=== PATIENT | female | born 1950 | race Caucasian/White ===

== ENCOUNTER 2017-11-17 07:33 | Day surgery (SDC) | payer BC ==
[2017-11-17] MEDS ORDERED: Lactated Ringers 1,000 ML IV SCH (08:30)
[2017-11-17] MEDS ORDERED: Midazolam 1 MG/ML 2 ML SDV ONE (09:06)
[2017-11-17] MEDS ORDERED: fentaNYL 100 MCG/2 ML SDV ONE (09:06)
[2017-11-17] MEDS ORDERED: Propofol 200 MG/20 ML SDV ONE (09:06)
--- NOTE | 2017-11-17 10:17 | OR ---
DATE OF PROCEDURE: 11/17/2017 PROCEDURE: Colonoscopy. FINDINGS: Diverticulosis. COMPLICATIONS: None. PALLET SORTER: None. ANESTHESIA: MAC. PREOPERATIVE DIAGNOSIS: Screening colonoscopy. POSTOPERATIVE DIAGNOSIS: Screening colonoscopy. RISKS: Risks, benefits, alternatives, and limitations including infection, bleeding, and perforation were explained to the patient and she wished to proceed. PROCEDURE IN DETAIL: The patient was placed in left lateral decubitus position. Digital rectal exam was performed which showed mild external hemorrhoids. The scope was introduced and advanced atraumatically to the ileocecal valve. The scope was brought back through the ascending, transverse, descending colon, and retroflexed. No evidence of old or new blood. The patient's diverticulosis would be described as mild-to- moderate, mostly concentrated in sigmoid colon, but extends up to the cecum. No abnormalities on retroflex. The patient tolerated the procedure well. Mikal Sierra MD /[id number]
== END 2017-11-17 11:05 | disposition home or self-care (01) ==
LOC: JP.SDS 07:33
PROVIDERS: ATTEND Surgery
DX: Z12.11 Encounter for screening for malignant neoplasm of colon (principal); K57.30 Diverticulosis of large intestine without perforation or abscess without bleeding; K64.4 Residual hemorrhoidal skin tags; I10 Essential (primary) hypertension; E78.5 Hyperlipidemia, unspecified; K21.9 Gastro-esophageal reflux disease without esophagitis; E03.9 Hypothyroidism, unspecified
CPT/HCPCS: 45378; J2250; J2704; J3010; J7120

== ENCOUNTER 2023-09-05 13:15 | Emergency (ER) | payer MEDICARE, BC ==
[2023-09-05] MEDS ORDERED: Sodium Chloride 0.9% 10 ML Syringe FLUSH PRN ×2 (13:56→14:03)
[2023-09-05 14:25] LABS: BASOPHILS ABSOLUTE AUTO 0.05 K/uL (0.00-0.10); BASOPHILS PERCENT AUTO 0.6 % (0.1-1.3); EOSINOPHILS ABSOLUTE AUTO 0.13 K/uL (0.00-0.40); EOSINOPHILS PERCENT AUTO 1.5 % (0.0-5.4); HEMATOCRIT 42.6 % (34.3-46.0); HEMOGLOBIN 14.6 g/dL (11.2-15.5); IMMATURE GRAN ABSOLUTE AUTO 0.03 K/uL (0.00-0.23); IMMATURE GRAN PERCENT AUTO 0.3 % (0.0-0.7); LYMPHOCYTES ABSOLUTE AUTO 2.23 K/uL (0.8-3.3); LYMPHOCYTES PERCENT AUTO 25.4 % (11.4-47.7); MEAN CORPUSCULAR HEMOGLOBIN 30.7 pg (31.6-35.5); MEAN CORPUSCULAR HGB CONC 34.3 g/dL (31.6-35.5); MEAN CORPUSCULAR VOLUME 89.7 fL (81.4-99.0); MONOCYTES ABSOLUTE AUTO 0.57 K/uL (0.20-0.90); MONOCYTES PERCENT AUTO 6.5 % (3.3-12.6); NEUTROPHILS ABSOLUTE AUTO 5.78 K/uL (1.0-7.6); NEUTROPHILS PERCENT AUTO 65.7 % (40.0-78.1); PLATELET COUNT,PLT 286 K/uL (130-375); RED BLOOD CELL COUNT 4.75 M/uL (3.77-5.24); WHITE BLOOD CELL COUNT,WBC 8.8 K/uL (3.2-11.0)
[2023-09-05 14:40] LABS: CREATININE 0.7 mg/dL (0.6-1.0); EST CRCL DRUG DOSING (CG) 63.65 mL/min
[2023-09-05] MEDS: amLODIPine 5 MG Tab PO ONE (14:40)
[2023-09-05] MEDS: Alum Hydrox/Mag Hydrox/Simeth 15 ML, Lidocaine 2% 15 ML PO ONE (14:40)
[2023-09-05 14:44] LABS: PROTHROMBIN TIME 10.3 sec (9.2-10.6); PTT,PARTIAL THROMBOPLSTIN TIME 27.5 sec (21.8-27.3)
== END 2023-09-05 17:00 | disposition home or self-care (01) ==
LOC: JP.ED 13:15
DX: I67.1 Cerebral aneurysm, nonruptured (principal); G89.4 Chronic pain syndrome; R07.89 Other chest pain; I10 Essential (primary) hypertension; E03.9 Hypothyroidism, unspecified; Z79.899 Other long term (current) drug therapy; Z88.2 Allergy status to sulfonamides; Z88.1 Allergy status to other antibiotic agents; Z88.8 Allergy status to other drugs, medicaments and biological substances
CPT/HCPCS: 36415; 70450; 80048; 84484; 85025; 85610; 85730; 93005; 99285; A9270; 93010; 99284

== ENCOUNTER 2024-01-30 07:32 | Observation (INO) | payer MEDICARE, BC ==
[~2024-01-30 07:32] MED LIST: Midazolam 1 MG/ML 2 ML SDV ONE; Propofol 200 MG/20 ML SDV ONE; fentaNYL 100 MCG/2 ML SDV ONE
[2024-01-30 08:06] LABS: BASOPHILS ABSOLUTE AUTO 0.04 K/uL (0.00-0.10); BASOPHILS PERCENT AUTO 0.5 % (0.1-1.3); EOSINOPHILS ABSOLUTE AUTO 0.11 K/uL (0.00-0.40); EOSINOPHILS PERCENT AUTO 1.5 % (0.0-5.4); HEMOGLOBIN 14.2 g/dL (11.2-15.5); IMMATURE GRAN PERCENT AUTO 0.3 % (0.0-0.7); LYMPHOCYTES ABSOLUTE AUTO 1.83 K/uL (0.8-3.3); LYMPHOCYTES PERCENT AUTO 25.1 % (11.4-47.7); MEAN CORPUSCULAR HEMOGLOBIN 30.9 pg (31.6-35.5); MEAN CORPUSCULAR HGB CONC 34.6 g/dL (31.6-35.5); MEAN CORPUSCULAR VOLUME 89.1 fL (81.4-99.0); MONOCYTES ABSOLUTE AUTO 0.52 K/uL (0.20-0.90); MONOCYTES PERCENT AUTO 7.1 % (3.3-12.6); NEUTROPHILS ABSOLUTE AUTO 4.76 K/uL (1.0-7.6); NEUTROPHILS PERCENT AUTO 65.5 % (40.0-78.1); PLATELET COUNT,PLT 272 K/uL (130-375); WHITE BLOOD CELL COUNT,WBC 7.3 K/uL (3.2-11.0)
[2024-01-30 08:08] LABS: IMMATURE GRAN ABSOLUTE AUTO 0.02 K/uL (0.00-0.23)
[2024-01-30] MEDS: Bupivacaine 0.5% 50 ML MDV ONE (08:20)
[2024-01-30 08:21] LABS: BLOOD UREA NITROGEN,BUN 13 mg/dL (7-18); CALCIUM 9.6 mg/dL (8.5-10.1); CARBON DIOXIDE,CO2 25 mmol/L (21-32); CHLORIDE,CL 103 mmol/L (100-108); CREATININE 0.8 mg/dL (0.6-1.0); ESTIMATED GFR 78 mL/min (>60); GLUCOSE RANDOM 112 mg/dL (74-106); POTASSIUM,K 3.8 mmol/L (3.6-5.2); SODIUM,NA 138 mmol/L (140-148)
[2024-01-30 08:22] LABS: ANION GAP 13.8 mmol/L (5.0-14.0)
[2024-01-30] MEDS: Nozin Nasal Sanitizer NASBOTH SCH ×2 (08:33→21:00)
[2024-01-30] MEDS ORDERED: oxyCODONE 5 MG Tab PO PRN (08:40)
[2024-01-30] MEDS ORDERED: Morphine 2 MG/ML SYRINGE IV PRN (08:40)
[2024-01-30] MEDS: Lactated Ringers 1,000 ML IV SCH (08:49)
[2024-01-30] MEDS ORDERED: Hydrochlorothiazide 12.5 MG Cap PO SCH (09:00)
[2024-01-30] MEDS ORDERED: Metoprolol Succinate 25 MG Tab.ER PO SCH (09:00)
[2024-01-30] MEDS: ceFAZolin 2 GM in Premix Bag 1 BAG IV ONE (11:00)
[2024-01-30] MEDS ORDERED: Lactated Ringers 1,000 ML ONE (11:23)
[2024-01-30] MEDS ORDERED: Midazolam 1 MG/ML 2 ML SDV ONE (11:33)
[2024-01-30] MEDS ORDERED: fentaNYL 100 MCG/2 ML SDV ONE ×2 (11:34→11:55)
[2024-01-30] MEDS: Ondansetron 4 MG/2 ML SDV IVPUSH ONE (13:06)
[2024-01-30] MEDS: Ketorolac 15 MG/ML SDV IVPUSH PRN (14:13)
[2024-01-30] MEDS: Ondansetron 4 MG/2 ML SDV IVPUSH PRN (14:14)
[2024-01-30] MEDS: Acetaminophen 325 MG Tab PO SCH (14:22)
[2024-01-30] MEDS: Metoprolol Tartrate 25 MG Tab*POM PO SCH (14:23)
[2024-01-30] MEDS: oxyCODONE 5 MG Tab PO PRN (15:39)
[2024-01-30] MEDS: Docusate Sodium 100 MG Cap PO PRN (15:40)
[2024-01-30] MEDS: ceFAZolin 2 GM in Premix Bag 1 BAG IV SCH (17:12)
[2024-01-30] MEDS: Sodium Chloride 0.9% 1,000 ML IV SCH (17:12)
[2024-01-31 05:45] LABS: HEMATOCRIT 29.5 % (34.3-46.0); HEMOGLOBIN 10.3 g/dL (11.2-15.5); MEAN CORPUSCULAR HEMOGLOBIN 31.1 pg (31.6-35.5); MEAN CORPUSCULAR HGB CONC 34.9 g/dL (31.6-35.5); MEAN CORPUSCULAR VOLUME 89.1 fL (81.4-99.0); RED BLOOD CELL COUNT 3.31 M/uL (3.77-5.24); WHITE BLOOD CELL COUNT,WBC 10.4 K/uL (3.2-11.0)
[2024-01-31] MEDS: Levothyroxine 25 MCG Tab PO SCH (07:18)
[2024-01-31] MEDS: Magnesium Hydroxide 400 MG/5 ML Susp 30 ML Cup PO PRN (09:18)
[2024-01-31] MEDS: HYDROCHLOROTHIAZIDE 12.5 MG PO SCH (09:18)
[2024-01-31] MEDS: Multivitamins with Iron/Calcium/Folic Acid/Minerals Tab PO SCH (09:18)
[2024-01-31] MEDS: Famotidine 20 MG Tab PO SCH (09:18)
[2024-01-31] MEDS: Cholecalciferol (Vitamin D3) 25 MCG Tab PO SCH (09:18)
[2024-01-31] MEDS: Aspirin 325 MG Tab.EC PO SCH (09:18)
[2024-01-31] MEDS: VITAMIN E 200 UNIT PO SCH (09:19)
[2024-02-01] MEDS: FAMOTIDINE 40 MG PO SCH (08:01)
[2024-02-01] MEDS: LEVOTHYROXINE 75 MCG PO SCH (08:02)
== END 2024-02-01 11:30 | disposition home or self-care (01) ==
LOC: JP.SDS 07:32 → JP.MS 08:41 → JP.SDS 01-31 09:46
PROVIDERS: ADMIT Specialist; ATTEND Specialist
DX: M16.12 Unilateral primary osteoarthritis, left hip (principal); I10 Essential (primary) hypertension; K21.9 Gastro-esophageal reflux disease without esophagitis; E03.9 Hypothyroidism, unspecified; Z79.890 Hormone replacement therapy; Z79.899 Other long term (current) drug therapy; Z88.2 Allergy status to sulfonamides; Z88.1 Allergy status to other antibiotic agents; Z88.8 Allergy status to other drugs, medicaments and biological substances
CPT/HCPCS: 01214-QZ; 36415; 72170; 72170-26; 80048; 85025; 85027; 93005; 93010; 97110-GP; 97116-GP; 97161-GP; 97165-GO; 97535-GO; A9270-GY; C1713; C1776; G0378; J0665; J0690; J1885; J2250; J2405; J2704; J3010; J7030; J7120

== ENCOUNTER 2024-02-01 12:20 | Observation (INO) | payer MEDICARE, BC ==
[2024-02-01] MEDS: oxyCODONE 5 MG Tab ONE (12:20)
[2024-02-01] MEDS: oxyCODONE 5 MG Tab PO ONE (13:41)
== END 2024-02-01 13:40 | disposition home or self-care (01) ==
LOC: JP.MS 12:20
PROVIDERS: ADMIT Physician Assistant; ATTEND Physician Assistant
DX: M25.552 Pain in left hip (principal); I10 Essential (primary) hypertension; K21.9 Gastro-esophageal reflux disease without esophagitis; E03.9 Hypothyroidism, unspecified; Z88.1 Allergy status to other antibiotic agents; Z88.2 Allergy status to sulfonamides; Z88.8 Allergy status to other drugs, medicaments and biological substances; Z79.890 Hormone replacement therapy; Z79.899 Other long term (current) drug therapy; Z79.82 Long term (current) use of aspirin
CPT/HCPCS: 73501; A9270; G0378

== ENCOUNTER 2024-10-03 05:48 | Day surgery (SDC) | payer MEDICARE, BC ==
[2024-10-03 06:31] LABS: HEMATOCRIT 43.6 % (34.3-46.0); HEMOGLOBIN 14.8 g/dL (11.2-15.5); MEAN CORPUSCULAR HEMOGLOBIN 31.8 pg (31.6-35.5); MEAN CORPUSCULAR HGB CONC 33.9 g/dL (31.6-35.5); MEAN CORPUSCULAR VOLUME 93.6 fL (81.4-99.0); RED BLOOD CELL COUNT 4.66 M/uL (3.77-5.24); WHITE BLOOD CELL COUNT,WBC 8.5 K/uL (3.2-11.0)
[2024-10-03 06:49] LABS: CALCIUM 9.5 mg/dL (8.5-10.1); CREATININE 0.9 mg/dL (0.6-1.0); EST CRCL DRUG DOSING (CG) 49.82 mL/min; POTASSIUM,K 3.7 mmol/L (3.6-5.2)
[2024-10-03] MEDS: Nozin Nasal Sanitizer NASBOTH ONE (06:53)
[2024-10-03] MEDS ORDERED: Propofol 200 MG/20 ML SDV ONE (07:01)
[2024-10-03 07:02] LABS: ANION GAP 13.7 mmol/L (5.0-14.0)
[2024-10-03] MEDS ORDERED: Midazolam 1 MG/ML 2 ML SDV ONE ×2 (07:02→08:16)
[2024-10-03] MEDS ORDERED: fentaNYL 100 MCG/2 ML SDV ONE ×2 (07:02→08:28)
[2024-10-03] MEDS: Lactated Ringers 1,000 ML IV SCH (07:23)
[2024-10-03] MEDS: ceFAZolin 2 GM in Premix Bag 1 BAG IV ONE ×2 (07:55→15:54)
[2024-10-03] MEDS: Bupivacaine 0.5% 50 ML MDV ONE (08:37)
[2024-10-03] MEDS ORDERED: Ketorolac 15 MG/ML SDV IVPUSH PRN (09:12)
[2024-10-03] MEDS ORDERED: Docusate Sodium 100 MG Cap PO PRN (09:12)
[2024-10-03] MEDS ORDERED: Morphine 2 MG/ML SYRINGE IV PRN (09:12)
[2024-10-03] MEDS ORDERED: Magnesium Hydroxide 400 MG/5 ML Susp 30 ML Cup PO PRN (09:12)
[2024-10-03] MEDS: Acetaminophen 325 MG Tab PO SCH (10:35)
[2024-10-03] MEDS: oxyCODONE 5 MG Tab PO PRN (11:41)
[2024-10-03] MEDS: Ondansetron 4 MG/2 ML SDV IVPUSH PRN (13:09)
[2024-10-03] MEDS: Metoprolol Tartrate 25 MG Tab PO SCH (13:52)
[2024-10-03] MEDS: Calcium Carbonate 500 MG Tab.Chew PO PRN (16:22)
[2024-10-03] MEDS: Sodium Chloride 0.9% 1,000 ML IV SCH (18:24)
[2024-10-03] MEDS: Nozin Nasal Sanitizer NASBOTH SCH (20:40)
[2024-10-03] MEDS: Famotidine 20 MG Tab PO SCH (20:41)
[2024-10-04 05:59] LABS: HEMATOCRIT 37.1 % (34.3-46.0); HEMOGLOBIN 12.4 g/dL (11.2-15.5); MEAN CORPUSCULAR HEMOGLOBIN 31.5 pg (31.6-35.5); MEAN CORPUSCULAR HGB CONC 33.4 g/dL (31.6-35.5); MEAN CORPUSCULAR VOLUME 94.2 fL (81.4-99.0); RED BLOOD CELL COUNT 3.94 M/uL (3.77-5.24); WHITE BLOOD CELL COUNT,WBC 9.4 K/uL (3.2-11.0)
[2024-10-04] MEDS: Levothyroxine 25 MCG Tab PO SCH (07:14)
[2024-10-04] MEDS ORDERED: VITAMIN E 200 UNIT PO SCH (09:00)
[2024-10-04] MEDS: Hydrochlorothiazide 12.5 MG Cap PO SCH (09:02)
[2024-10-04] MEDS: Multivitamins with Iron/Calcium/Folic Acid/Minerals Tab PO SCH (09:03)
[2024-10-04] MEDS: Cholecalciferol (Vitamin D3) 25 MCG Tab PO SCH (09:03)
[2024-10-04] MEDS: Lisinopril 10 MG Tab PO SCH (09:03)
== END 2024-10-04 15:00 | disposition home or self-care (01) ==
LOC: JP.SDS 05:48 → JP.MS 09:12 → JP.SDS 10-04 15:00
PROVIDERS: ATTEND Specialist
DX: T84.82XA Fibrosis due to internal orthopedic prosthetic devices, implants and grafts, initial encounter (principal); M24.652 Ankylosis, left hip; I10 Essential (primary) hypertension; K21.9 Gastro-esophageal reflux disease without esophagitis; Z88.2 Allergy status to sulfonamides; Z88.1 Allergy status to other antibiotic agents; Z79.899 Other long term (current) drug therapy; Y83.8 Other surgical procedures as the cause of abnormal reaction of the patient, or of later complication, without mention of misadventure at the time of the procedure
CPT/HCPCS: 01210-QZ; 36415; 80048; 85027; 97110-GP; 97161-GP; 97165-GO; 97530-GP; 97535-GO; A9270-GY; J0665; J0690; J2250; J2405; J2704; J3010; J7030; J7120